=== PATIENT | female | born 1965 | race Caucasian/White ===

== ENCOUNTER → 2020-12-08 | Outpatient (CLI) | payer OTHER ==
--- NOTE | 2020-12-08 14:50 | RAD ---
EXAM: Left shoulder, 3 views. HISTORY: Pain. COMPARISON: None. FINDINGS: 3 views of the left shoulder obtained. There is no fracture, dislocation or subluxation. Th ere is degenerative spurring and subchondral sclerosis and subchondral cyst formation involving the a cromioclavicular joint. IMPRESSION: Mild acromioclavicular joint osteoarthritis. Electronically signed by: Marva Burger MD (12/08/2020 2:47 PM) [id number]
== END ==
LOC: RAD 14:13
PROVIDERS: ATTEND Physician Assistant
DX: M19.012 Primary osteoarthritis, left shoulder (principal); G89.29 Other chronic pain
CPT/HCPCS: 73030